=== PATIENT | female | born 1975 | race Caucasian/White ===

== ENCOUNTER → 2020-08-08 | Outpatient (CLI) | payer OTHER ==
[~2020-08-08] MED LIST: FLOMAX0.4 MG PO; TORADOL 10 MG T10 MG PO; ZOFRAN4 MG PO
== END ==
LOC: RAD 12:38
DX: M54.5 Low back pain (principal); M40.56 Lordosis, unspecified, lumbar region; M48.061 Spinal stenosis, lumbar region without neurogenic claudication; M48.07 Spinal stenosis, lumbosacral region; M47.816 Spondylosis without myelopathy or radiculopathy, lumbar region; K59.00 Constipation, unspecified
CPT/HCPCS: 72110

== ENCOUNTER → 2020-08-21 | Outpatient (CLI) | payer OTHER | LOC: MRI 08:19 | DX: M51.16 Intervertebral disc disorders with radiculopathy, lumbar region (principal); M48.07 Spinal stenosis, lumbosacral region; M51.27 Other intervertebral disc displacement, lumbosacral region; M48.061 Spinal stenosis, lumbar region without neurogenic claudication | CPT/HCPCS: 72148 ==

== ENCOUNTER 2020-08-29 02:02 | Emergency (ER) | payer OTHER | END 2020-08-29 04:46 | disposition home or self-care (01) | LOC: ER1 02:02 | DX: Z20.822 Contact with and (suspected) exposure to COVID-19 (principal) | CPT/HCPCS: 99283; U0002 ==

== ENCOUNTER → 2020-10-11 | Outpatient (CLI) | payer OTHER ==
[2020-10-11 11:56] LABS: BUN/CREATININE RATIO 36 (0-10)
[2020-10-12 15:14] LABS: ALBUMIN 3.5 g/dL (2.9-4.4); ALPHA-1-GLOBULIN 0.3 g/dL (0.0-0.4); BETA GLOBULIN 1.1 g/dL (0.7-1.3); GAMMA GLOBULIN 1.2 g/dL (0.4-1.8); GLOBULIN, TOTAL 3.6 g/dL (2.2-3.9); M-SPIKE Not Observed g/dL (Not Observed); PROTEIN, TOTAL, SERUM 7.1 g/dL (6.0-8.5)
== END ==
LOC: LAB 10:45
PROVIDERS: Internal Medicine
DX: R79.82 Elevated C-reactive protein (CRP) (principal); R70.0 Elevated erythrocyte sedimentation rate; Z79.1 Long term (current) use of non-steroidal anti-inflammatories (NSAID)
CPT/HCPCS: 36415; 80053; 83520; 84155; 84165; 85652; 86140

== ENCOUNTER → 2021-04-10 | Outpatient (CLI) | payer OTHER | LOC: KOH-I 14:00 | DX: R79.89 Other specified abnormal findings of blood chemistry (principal); M79.605 Pain in left leg | CPT/HCPCS: 93970 ==

== ENCOUNTER → 2021-04-30 | Outpatient (CLI) | payer OTHER | LOC: KOH-I 04-16 11:00 | DX: M79.604 Pain in right leg (principal); M79.605 Pain in left leg; R79.89 Other specified abnormal findings of blood chemistry | CPT/HCPCS: 93922; 93925 ==

== ENCOUNTER → 2021-06-25 | Outpatient (CLI) | payer OTHER | LOC: LAB 13:57 | DX: D50.9 Iron deficiency anemia, unspecified (principal) | CPT/HCPCS: 36415; 85652 ==

== ENCOUNTER → 2021-09-04 | Outpatient (CLI) | payer OTHER ==
[2021-09-04 14:41] LABS: HEMOGLOBIN 11.1 gm/dl (12.3-15.3); RED BLOOD COUNT 4.22 M/UL (4.00-5.10); WHITE BLOOD COUNT 7.4 K/UL (4.5-11.0)
[2021-09-05 08:16] LABS: A/G RATIO 1.4 (1.2-2.2); ALKALINE PHOSPHATASE, S 96 IU/L (44-121); ALT (SGPT) 14 IU/L (0-32); AST (SGOT) 17 IU/L (0-40); BILIRUBIN, TOTAL 0.3 mg/dL (0.0-1.2); BUN 18 mg/dL (6-24); BUN/CREATININE RATIO 25 (9-23); CALCIUM, SERUM 9.4 mg/dL (8.7-10.2); CARBON DIOXIDE, TOTAL 21 mmol/L (20-29); CHLORIDE, SERUM 101 mmol/L (96-106); CREATININE, SERUM 0.72 mg/dL (0.57-1.00); EGFR IF AFRICN AM 117 (>59); EGFR IF NONAFRICN AM 101 (>59); GLOBULIN, TOTAL 3.4 g/dL (1.5-4.5); GLUCOSE, SERUM 84 mg/dL (65-99); POTASSIUM, SERUM 4.1 mmol/L (3.5-5.2); PROTEIN, TOTAL, SERUM 8.2 g/dL (6.0-8.5); SODIUM, SERUM 140 mmol/L (134-144)
[2021-09-05 09:15] LABS: FERRITIN 18 ng/mL (15-150); IRON BIND.CAP.(TIBC) 474 ug/dL (250-450); IRON SATURATION 8 % (15-55); IRON, SERUM 36 ug/dL (27-159); UIBC 438 ug/dL (131-425); VITAMIN D, 25-HYDROXY 29.5 ng/mL (30.0-100.0)
[2021-09-05 13:16] LABS: ANTISTREPTOLYSIN O AB 217.7 IU/mL (0.0-200.0); RHEUMATOID ARTHRITIS FACTOR <10.0 IU/mL (<14.0)
== END ==
LOC: LAB 13:20
PROVIDERS: Nurse Practitioner Family
DX: Z00.00 Encounter for general adult medical examination without abnormal findings (principal); Z13.220 Encounter for screening for lipoid disorders; M54.50 Low back pain, unspecified; M25.50 Pain in unspecified joint; G44.89 Other headache syndrome; D50.9 Iron deficiency anemia, unspecified; R53.83 Other fatigue; E55.9 Vitamin D deficiency, unspecified; E53.8 Deficiency of other specified B group vitamins
CPT/HCPCS: 80053; 81001; 82607; 82728; 83540; 83550; 83690; 84439; 84443; 84550; 85025; 85652; 86038; 86060; 86140; 86141; 86431

== ENCOUNTER → 2021-11-05 | Outpatient (CLI) | payer OTHER ==
[2021-11-05 15:48] LABS: BUN/CREATININE RATIO 28 (0-10)
[2021-11-05 16:12] LABS: HEMOGLOBIN 11.8 gm/dl (12.3-15.3); RED BLOOD COUNT 4.2 M/UL (4.00-5.10); WHITE BLOOD COUNT 5.8 K/UL (4.5-11.0)
[2021-11-06 11:17] LABS: ANTISTREPTOLYSIN O AB 177.3 IU/mL (0.0-200.0)
[2021-11-07 04:09] LABS: SARS-COV-2 SEMI-QUANT TOTAL AB See Dilution U/mL (Negative<0.8); SARS-COV-2 SPIKE AB INTERP Positive (.)
== END ==
LOC: LAB 14:41
PROVIDERS: Nurse Practitioner Family
DX: D50.9 Iron deficiency anemia, unspecified (principal); N92.0 Excessive and frequent menstruation with regular cycle; M25.50 Pain in unspecified joint; U07.1 COVID-19
CPT/HCPCS: 36415; 80053; 82728; 83540; 83550; 85025; 85652; 86060

== ENCOUNTER → 2021-11-08 | Outpatient (CLI) | payer OTHER | LOC: LAB 13:50 | DX: R06.02 Shortness of breath (principal); M25.561 Pain in right knee; M25.562 Pain in left knee; M79.604 Pain in right leg; M79.605 Pain in left leg; M79.89 Other specified soft tissue disorders; M54.50 Low back pain, unspecified; M17.0 Bilateral primary osteoarthritis of knee; M47.816 Spondylosis without myelopathy or radiculopathy, lumbar region | CPT/HCPCS: 36415; 71046; 72100; 73562; 83880; 85652 ==

== ENCOUNTER → 2021-11-26 | Outpatient (CLI) | payer OTHER ==
[~2021-11-26] MED LIST changes: +ALLERGY SHOTS INJ; +CELEXA40 MG PO; +EMGALITY120 MG/1 M INJ; +FERROUS GLUCON324 M1 PO; +NAPROXEN500 MG PO; +TRAZODONE HCL50 MG PO; +UBRELVY100 MG PO; +VITAMIN C500 M4 PO; +ZOMIG5 M1
[2021-11-26 13:23] LABS: HEMOGLOBIN 11.7 gm/dl (12.3-15.3); RED BLOOD COUNT 4.2 M/UL (4.00-5.10); WHITE BLOOD COUNT 7.2 K/UL (4.5-11.0)
== END ==
LOC: OPSV2 12:04
PROVIDERS: Obstetrics & Gynecology
DX: Z01.812 Encounter for preprocedural laboratory examination (principal); N92.0 Excessive and frequent menstruation with regular cycle
CPT/HCPCS: 36415; 81001; 85025; 93005

== ENCOUNTER → 2021-12-04 | Day surgery (SDC) | payer OTHER ==
[~2021-12-04] MED LIST changes: +COLACE 100MG C100 MG PO; +HYDROCODON-ACE1 EAC4 PO; +NAPROXEN250 MG PO; +VITAMIN D21250 MCG PO
[2021-12-04 08:54] LABS: BUN/CREATININE RATIO 32 (0-10)
== END | disposition home or self-care (01) ==
LOC: OR 08:02
PROVIDERS: Obstetrics & Gynecology
DX: N84.0 Polyp of corpus uteri (principal); D64.9 Anemia, unspecified; R93.89 Abnormal findings on diagnostic imaging of other specified body structures; J45.909 Unspecified asthma, uncomplicated; Z98.51 Tubal ligation status; Z20.822 Contact with and (suspected) exposure to COVID-19
CPT/HCPCS: 36415; 80048; 84439; 84443; J1100; J1885; J2001; J2250; J2405; J2704; J2795; J3010; J7030; J7120

== ENCOUNTER → 2021-12-28 | Outpatient (CLI) | payer OTHER | LOC: NM 12-14 13:00 → ECHO 12-18 09:00 → NM 09:30 | DX: R06.02 Shortness of breath (principal); R68.89 Other general symptoms and signs; I08.1 Rheumatic disorders of both mitral and tricuspid valves; I27.20 Pulmonary hypertension, unspecified | CPT/HCPCS: ECHO; 78452; 93017; 93306; A9502 ==

== ENCOUNTER → 2022-04-15 | Outpatient (CLI) | payer OTHER ==
[2022-04-15 13:07] LABS: RED BLOOD COUNT 4.26 M/UL (4.00-5.10); WHITE BLOOD COUNT 6.4 K/UL (4.5-11.0)
[2022-04-15 13:35] LABS: BUN/CREATININE RATIO 39 (0-10)
[2022-04-16 11:14] LABS: CREATININE, URINE 97.2 mg/dL (Not Estab.); MICROALB/CREAT RATIO <3 (0-29)
== END ==
LOC: LAB 12:33
PROVIDERS: Nurse Practitioner Family
DX: Z00.00 Encounter for general adult medical examination without abnormal findings (principal); D50.9 Iron deficiency anemia, unspecified; R73.9 Hyperglycemia, unspecified; F41.9 Anxiety disorder, unspecified; M47.9 Spondylosis, unspecified; R51.9 Headache, unspecified; M25.50 Pain in unspecified joint; G43.009 Migraine without aura, not intractable, without status migrainosus
CPT/HCPCS: 36415; 80053; 80061; 81001; 82043; 82570; 82607; 82728; 83036; 83540; 83550; 84439; 84443; 85025